=== PATIENT | female | born 1980 | race American Indian/Alaskan Native ===

== ENCOUNTER 2017-01-11 21:47 | Emergency (ER) | payer SELFPAY ==
[2017-01-11 21:58] VITALS: BP 122/75
[2017-01-12] MEDS ORDERED: DELTASONE PO ONE (02:05)
[2017-01-12] MEDS ORDERED: NORCO 5/325 PO ONE (02:05)
--- NOTE | 2017-01-12 02:05 | Emergency Department Report ---
Upper Extremity - HPI Chief Complaint: Pain General Stated Complaint: LEFT SIDE BODY PAIN Time Seen by Provider: 01/12/17 01:58 Upper Extremity: Left Shoulder (left neck and left upper back), Left Arm Occurred When: 3 Days Mechanism: Unsure Symptoms: Yes Pain with Movement, Yes Limited Range of Movement (to left shoulder), No Deformity, No Numbness, No Weakness, No Swelling, No Bruising/ Ecchymosis Other History: Patient here reporting that she is having pain to her left neck, shoulder, left upper back, left arm 3 days. She denies any chest trauma or lifting any heavy objects. She said the pain increased with palpation. 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 Denies any fever or chills. Denies any urinary burning frequency or urgency. Denies any abdominal or back pain. Denies any numbness or tingling to extremities. ED Review of Systems ROS: Stated complaint: LEFT SIDE BODY PAIN Other details as noted in HPI Comment: All other systems reviewed and negative Constitutional: no symptoms reported ENT: denies: ear pain, throat pain, congestion Cardiovascular: denies: chest pain, palpitations, edema, syncope Gastrointestinal: denies: abdominal pain, nausea, vomiting, diarrhea Genitourinary: denies: urgency, dysuria, frequency, hematuria, discharge Musculoskeletal: back pain, arthralgia Skin: denies: rash Neurological: denies: headache, weakness, numbness, paresthesias, confusion, abnormal gait, vertigo ED Past Medical Hx - Past Medical History Previous Medical History?: No Hx Hypertension: No Hx Heart Attack/AMI: No Hx Congestive Heart Failure: No Hx Diabetes: No Hx Deep Vein Thrombosis: No Hx Pulmonary Embolism: No Hx Liver Disease: No Hx Renal Disease: No Hx Sickle Cell Disease: No Hx Headaches / Migraines: No Hx Seizures: No Hx Asthma: No Hx COPD: No Hx Tuberculosis: No Hx HIV: No - Surgical History Past Surgical History?: Yes Additional Surgical History: left ovary removed - Family History Family history: no significant - Social History Smoking Status: Current Every Day Smoker Substance Use Type: None - Medications Home Medications: Home Medications Medication Instructions Recorded Confirmed Last Taken Type [id number]/Iron Fumarate/FA/Dss 1 tab PO DAILY 09/29/13 09/29/13 09/28/13 12:00 History [ 19 Tablet] Cyclobenzaprine [Flexeril] 10 mg PO TID PRN #30 tablet 03/07/16 Unknown Rx Ibuprofen [Motrin 800 MG tab] 800 mg PO Q8HR PRN #30 tablet 03/07/16 Unknown Rx Cyclobenzaprine [Flexeril] 10 mg PO TID PRN #15 tablet 01/12/17 Unknown Rx traMADol [Ultram] 50 mg PO Q6HR PRN #20 tablet 01/12/17 Unknown Rx Upper Extremity Exam - Exam General: Vital signs noted. No distress. Alert and acting appropriately. This is a 36-year-old female well-nourished well-developed in no acute distress. Head: Normocephalic atraumatic Neck: Supple, no C-spine tenderness, no tracheal deviation. Nontender to palpate. no adenopathy. Full range of motion to neck without any pain. Abdomen: Soft, nontender to palpate in all quadrants, normal bowel sounds in all quadrant and negative CVA tenderness bilaterally. Back: No vertebral or paraspinal tenderness. No saddle anesthesia. Patient able to ambulate without any difficulties. Negative SLR bilaterally. Neurological: GCS of 15, alert and oriented 3. Speech is clear and fluid. Normal gait. No motor or sensory deficit. Normal reflexes. No facial drooping. No pronator drift and negative Romberg. 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 Bilateral sclera and conjunctiva without injection. Normal accommodation. No Lungs: Clear to auscultate bilaterally no rhonchi wheezes or rales. Normal work of breathing extremity; No CCE. +2 pulses. No neurovascular compromise Cardiovascular: S1-S2, regular rate rhythm. No murmurs. Skin: clean Dry and intact no rash no lesions Psych: Normal mood and behavior Head and Torso: No HEENT Abnormality, No Neck Tenderness, No Chest/Lungs Abnormality, No Abdominal Tenderness, No Back Tenderness Shoulder Exam: Yes Shoulder Tenderness, Yes Normal Range of Motion in Shoulder ( she has full range of motion but says it hurts to her left shoulder when she raises her left arm above her head), No Clavicle Tenderness, No Shoulder Deformity, No AC Joint Tenderness Arm Exam: No Arm/Humerus Tenderness, No Arm Deformity Elbow: Yes Normal Range of Motion in Elbow, No Elbow Tenderness, No Elbow Deformity Forearm: No Forearm Tenderness, No Forearm Deformity, No Pain with Pronation, No Pain with Supination Wrist: Yes Normal ROM in Wrist, No Wrist Tenderness, No Wrist Deformity, No Snuffbox Tenderness, No Pain with Axial Thumb Compression Hand: Yes Normal ROM in Digit(s), No Hand Tenderness, No Hand Deformity, No Digit Tenderness, No Digit(s) Deformity, No Tendon Dysfunction CMS Exam: Yes Normal Distal Pulses, Yes Normal Capillary Refill, Yes Normal Distal Sensation, No Broken Skin ED Course Vital Signs 01/11/17 21:56 Temperature 98 F Pulse Rate 84 Respiratory 18 Rate Blood Pressure 122/75 [Right] O2 Sat by Pulse 100 Oximetry - Reevaluation(s) Reevaluation #1: 01/12/17 03:04 She given Delphos 5/325 2 tablets and prednisone 60 mg by mouth and emergency room with relief of pain. ED Medical Decision Making - Medical Decision Making EDCourse: Patient with diagnosis of arthralgia to left upper extremity, neck muscle pain and upper back pain. She was given Delphos 5/325 mg 2 tablets along with Decadron 10 mg by mouth and emergency room with relief of pain. I discussed the patient that she will need to follow-up with orthopedic for further evaluation and testing. I told her that she might need an MRI of her shoulder or other diagnostic testing. Instructed her based on my exam she does not have any broken bones. She is able to move all extremities freely. He does not have any C-spine tenderness or vertebral tenderness. Patient discharged home with prescription for Ultram and Flexeril. She voiced discharge instruction and discharged home with her family. Critical care attestation.: If time is entered above; I have spent that time in minutes in the direct care of this critically ill patient, excluding procedure time. ED Disposition Clinical Impression: Arthralgia of multiple sites Neck muscle strain Qualifiers: Encounter type: initial encounter Qualified Code(s): S16.1XXA - Strain of muscle, fascia and tendon at neck level, initial encounter Back pain Qualifiers: Back pain location: thoracic back pain Chronicity: acute Back pain laterality: left Qualified Code(s): M54.6 - Pain in thoracic spine Disposition: DISCHARGED TO HOME OR SELFCARE Is pt being admited?: No Does the pt Need Aspirin: No Condition: Stable Instructions: Muscle Strain (ED), Arthralgia (ED), Back Pain (ED) Additional Instructions: Take medication as prescribed. Please do not take Flexeril for Ultram if he was driving or operating heavy machinery as these medication can cause drowsiness. Follow-up with orthopedic doctor if he still continued to have pain. Prescriptions: Cyclobenzaprine [Flexeril] 10 mg PO TID PRN #15 tablet PRN Reason: MUSCLE STRAIN traMADol [Ultram] 50 mg PO Q6HR PRN #20 tablet PRN Reason: Pain Referrals: PRIMARY MD PEDRO [Primary Care Provider] - 01/13/17 GUERITA LANG MD [Staff Physician] - 01/16/17 Forms: Accompanied Note, Work/School Release Form(ED)
== END 2017-01-12 03:18 | disposition home or self-care (01) ==
LOC: ED 21:47
DX: S16.1XXA Strain of muscle, fascia and tendon at neck level, initial encounter (principal); M54.6 Pain in thoracic spine; M25.512 Pain in left shoulder; F17.200 Nicotine dependence, unspecified, uncomplicated; X58.XXXA Exposure to other specified factors, initial encounter; Y93.89 Activity, other specified; Y99.8 Other external cause status; Y92.89 Other specified places as the place of occurrence of the external cause
CPT/HCPCS: 99282; J7512